=== PATIENT | female | born 1945 | race African-American/Black ===

== ENCOUNTER 2022-05-13 23:01 | Inpatient (IN) | payer OTHER ==
[~2022-05-13] VITALS: Ht 172.7 cm; Wt 80.0 kg
[2022-05-14 02:25] LABS: Basophils # (auto) 0.1 10 ^3/uL (0-0.2); Basophils % (auto) 0.9 % (0.0-2.0); Eosinophils # (auto) 0.2 10 ^3/uL (0-0.8); Eosinophils % (auto) 2.5 % (0.0-7.0); Hematocrit 43.9 % (36.0-46.0); Hemoglobin 14.7 g/dL (12.2-16.2); Lymphocytes # (auto) 2.2 10 ^3/uL (0.4-5.4); Lymphocytes % (auto) 35.2 % (10.0-50.0); Mean Corpuscular Hemoglobin 31.2 pg (28.0-32.0); Mean Corpuscular Hgb Conc. 33.4 g/dL (32.0-36.0); Mean Corpuscular Volume 93.4 fL (80.0-100.0); Monocytes # (auto) 0.5 10 ^3/uL (0-1.3); Monocytes % (auto) 7.9 % (0.0-12.0); Neutrophils # (auto) 3.3 10 ^3/uL (1.6-8.6); Neutrophils % (auto) 53.5 % (37.0-80.0); Nucleated Red Blood Cells % 0.1 %; Red Cell Distribution Width 13.8 % (11.8-14.3); White Blood Cell 6.2 10^3/uL (4.4-10.8)
[2022-05-14 02:41] LABS: Albumin 3.8 g/dL (3.4-5.0); Calcium 9.1 mg/dL (8.5-10.1)
[2022-05-14 02:45] LABS: BUN/Creatinine Ratio 11.8; Bilirubin, Total 0.5 mg/dL (0.2-1.0); Total Protein 7.5 g/dL (6.4-8.2)
[2022-05-14 02:54] LABS: Potassium 2.9 mmol/L (3.5-5.1)
[2022-05-14] MEDS ORDERED: POTASSIUM CHL 20 Meq TABLET PO ONE (03:00)
[2022-05-14 03:19] LABS: INR 0.98 (0.9-1.15)
[2022-05-14] MEDS ORDERED: CLOPIDOGREL BISULFATE 75 MG TAB PO ONE (04:30)
[2022-05-14] MEDS ORDERED: ONDANSETRON HCL 4 MG/2 ML VIAL IV PRN (05:00)
[2022-05-14] MEDS ORDERED: DOCUSATE SOD 100 MG CAP PO PRN (05:00)
[2022-05-14] MEDS ORDERED: NITROGLYCERIN 0.4 MG SL TAB SL PRN (05:00)
[2022-05-14] MEDS ORDERED: MORPHINE SULFATE INJ 2 MG/ml SYRG IV PRN (05:00)
[2022-05-14] MEDS ORDERED: ACETAMINOPHEN 325 MG TAB PO PRN (05:00)
[2022-05-14] MEDS: SODIUM CHLOR 0.9% PF (SALINE LOCK) 10ML VIAL/SYR IV SCH ×3 (06:00→22:24)
[2022-05-14 07:32] LABS: Basophils # (auto) 0 10 ^3/uL (0-0.2); Basophils % (auto) 0.4 % (0.0-2.0); Eosinophils # (auto) 0.2 10 ^3/uL (0-0.8); Eosinophils % (auto) 2.5 % (0.0-7.0); Hemoglobin 13.5 g/dL (12.2-16.2); Lymphocytes # (auto) 2.4 10 ^3/uL (0.4-5.4); Lymphocytes % (auto) 37.2 % (10.0-50.0); Mean Corpuscular Hemoglobin 31.3 pg (28.0-32.0); Mean Corpuscular Hgb Conc. 33.8 g/dL (32.0-36.0); Mean Corpuscular Volume 92.6 fL (80.0-100.0); Monocytes # (auto) 0.6 10 ^3/uL (0-1.3); Monocytes % (auto) 8.7 % (0.0-12.0); Neutrophils # (auto) 3.4 10 ^3/uL (1.6-8.6); Neutrophils % (auto) 51.2 % (37.0-80.0); Nucleated Red Blood Cells % 0.3 %; Red Blood Cells 4.32 10^6/uL (4.0-5.20); Red Cell Distribution Width 13.7 % (11.8-14.3); White Blood Cell 6.6 10^3/uL (4.4-10.8)
[2022-05-14 07:40] LABS: Albumin 3.1 g/dL (3.4-5.0); BUN/Creatinine Ratio 11.9; Calcium 8.8 mg/dL (8.5-10.1)
[2022-05-14 07:42] LABS: Bilirubin, Total 0.3 mg/dL (0.2-1.0)
[2022-05-14 07:44] LABS: Urine Bacteria NONE SEEN /hpf (None Seen); Urine Blood Negative /uL (Negative); Urine Hyaline Cast FEW /lpf (0 - 2); Urine Specific Gravity 1.013 (1.001-1.035); Urine WBC 8 /hpf (0 - 5)
[2022-05-14 07:57] LABS: Potassium 2.7 mmol/L (3.5-5.1)
[2022-05-14] MEDS ORDERED: CLOPIDOGREL BISULFATE 75 MG TAB PO SCH (10:00)
[2022-05-14] MEDS ORDERED: ASPirin 81 mg TAB PO SCH (10:00)
[2022-05-14] MEDS: POTASSIUM CHL 20MEQ/100ML 100 ML IV SCH ×2 (10:11→13:20)
[2022-05-14] MEDS ORDERED: LORazepam 2MG/ML-1ML VIAL IV PRN (20:15)
[2022-05-14 20:35] LABS: BUN/Creatinine Ratio 13.9; Calcium 8.9 mg/dL (8.5-10.1); Potassium 3.5 mmol/L (3.5-5.1)
[2022-05-14 20:37] LABS: Bilirubin, Total 0.3 mg/dL (0.2-1.0); Total Protein 6.3 g/dL (6.4-8.2)
[2022-05-14 21:48] LABS: Cholesterol 140 mg/dL (< 200); HDL Cholesterol 64 mg/dL (40-59); LDL Cholesterol 75 mg/dL (< 100); Triglycerides 52 mg/dL (< 150)
[2022-05-14] MEDS ORDERED: APIXABAN 2.5 MG TAB PO SCH (22:00)
[2022-05-14] MEDS: ATORVASTATIN 20 MG TAB PO SCH (22:24)
[2022-05-15] MEDS: SODIUM CHLOR 0.9% PF (SALINE LOCK) 10ML VIAL/SYR IV SCH ×3 (05:44→20:34)
[2022-05-15 06:01] LABS: Albumin 3.1 g/dL (3.4-5.0); Basophils # (auto) 0 10 ^3/uL (0-0.2); Basophils % (auto) 0.6 % (0.0-2.0); Calcium 8.6 mg/dL (8.5-10.1); Eosinophils # (auto) 0.2 10 ^3/uL (0-0.8); Hematocrit 37.4 % (36.0-46.0); Hemoglobin 12.8 g/dL (12.2-16.2); Lymphocytes # (auto) 2.2 10 ^3/uL (0.4-5.4); Lymphocytes % (auto) 43.4 % (10.0-50.0); Mean Corpuscular Hemoglobin 31.7 pg (28.0-32.0); Mean Corpuscular Hgb Conc. 34.3 g/dL (32.0-36.0); Mean Corpuscular Volume 92.5 fL (80.0-100.0); Monocytes # (auto) 0.5 10 ^3/uL (0-1.3); Monocytes % (auto) 10.7 % (0.0-12.0); Neutrophils # (auto) 2.1 10 ^3/uL (1.6-8.6); Neutrophils % (auto) 41.3 % (37.0-80.0); Nucleated Red Blood Cells % 0.1 %; Potassium 3.2 mmol/L (3.5-5.1); Red Blood Cells 4.05 10^6/uL (4.0-5.20); Red Cell Distribution Width 13.8 % (11.8-14.3)
[2022-05-15 06:05] LABS: BUN/Creatinine Ratio 13.5; Bilirubin, Total 0.5 mg/dL (0.2-1.0); Total Protein 5.9 g/dL (6.4-8.2)
[2022-05-15] MEDS: HYDROcodone-ACET 5/325MG TAB PO PRN ×3 (09:00→11:37)
[2022-05-15] MEDS ORDERED: CARVEDILOL 12.5 MG TAB PO ONE (14:45)
[2022-05-15] MEDS ORDERED: POTASSIUM CHLORIDE 60 MEQ, LIDOCAINE 1% (LOCAL ANESTH.) 6 ML in SODIUM CHL 0.9% 500 ML IV ONE (14:45)
[2022-05-15] MEDS ORDERED: cefTRIAXone 1GM/50ML D5W 50 ML IV ONE (14:45)
[2022-05-15] MEDS ORDERED: AMIODARONE HCL 200 MG TAB PO ONE (14:45)
[2022-05-15] MEDS: SODIUM CHLORIDE 0.9% 1,000 ML IV SCH (15:58)
[2022-05-15] MEDS: APIXABAN 2.5 MG TAB PO SCH (19:00)
[2022-05-15] MEDS: CARVEDILOL 12.5 MG TAB PO SCH (20:33)
[2022-05-15] MEDS: ATORVASTATIN 20 MG TAB PO SCH (20:34)
[2022-05-15] MEDS: AMIODARONE HCL 200 MG TAB PO SCH (20:34)
[2022-05-15 22:00] VITALS: BP 121/76
[2022-05-15 23:40] VITALS: BP_SYST 141; BP_SYST 142; BP_DIAS 85
[2022-05-16] VITALS (7 sets, daily range): BP systolic 130–152; BP diastolic 75–89
[2022-05-16] MEDS: SODIUM CHLORIDE 0.9% 1,000 ML IV SCH ×3 (04:17→23:07)
[2022-05-16] MEDS: SODIUM CHLOR 0.9% PF (SALINE LOCK) 10ML VIAL/SYR IV SCH ×3 (06:00→21:54)
[2022-05-16] MEDS: APIXABAN 2.5 MG TAB PO SCH ×2 (06:34→19:26)
[2022-05-16] MEDS: AMIODARONE HCL 200 MG TAB PO SCH ×2 (11:24→21:51)
[2022-05-16] MEDS: cefTRIAXone 1GM/50ML D5W 50 ML IV SCH (11:24)
[2022-05-16] MEDS: CARVEDILOL 12.5 MG TAB PO SCH ×2 (11:25→21:53)
[2022-05-16] MEDS ORDERED: CAR125T PO (11:38)
[2022-05-16] MEDS ORDERED: ATOR20TA50 PO (11:38)
[2022-05-16] MEDS ORDERED: APIX2.5T PO (11:38)
[2022-05-16] MEDS ORDERED: NITR0.4S29 SL (11:38)
[2022-05-16] MEDS: ATORVASTATIN 20 MG TAB PO SCH (21:51)
[2022-05-16] MEDS ORDERED: TEMAZEPAM 15 MG CAP PO ONE (22:15)
[2022-05-17 05:00] VITALS: BP 141/61
[2022-05-17] MEDS: APIXABAN 2.5 MG TAB PO SCH (06:12)
[2022-05-17] MEDS: SODIUM CHLOR 0.9% PF (SALINE LOCK) 10ML VIAL/SYR IV SCH (06:14)
[2022-05-17 09:00] VITALS: BP 153/70
[2022-05-17] MEDS: cefTRIAXone 1GM/50ML D5W 50 ML IV SCH (09:00)
[2022-05-17] MEDS: CARVEDILOL 12.5 MG TAB PO SCH (09:48)
[2022-05-17] MEDS: AMIODARONE HCL 200 MG TAB PO SCH (09:48)
== END 2022-05-17 11:15 | disposition home or self-care (01) | DRG 69 ==
LOC: ER 23:01 → TELE 05-14 04:53 → TELE-WESTW 05-15 23:00
PROVIDERS: ADMIT Nurse Practitioner Family; ATTEND Internal Medicine
DX: G45.9 Transient cerebral ischemic attack, unspecified (principal); I13.0 Hypertensive heart and chronic kidney disease with heart failure and stage 1 through stage 4 chronic kidney disease, or unspecified chronic kidney disease; N39.0 Urinary tract infection, site not specified; N17.9 Acute kidney failure, unspecified; I69.351 Hemiplegia and hemiparesis following cerebral infarction affecting right dominant side; I50.9 Heart failure, unspecified; E87.6 Hypokalemia; K21.9 Gastro-esophageal reflux disease without esophagitis; I48.0 Paroxysmal atrial fibrillation; N18.9 Chronic kidney disease, unspecified; Z20.822 Contact with and (suspected) exposure to COVID-19; E78.5 Hyperlipidemia, unspecified; F31.9 Bipolar disorder, unspecified; Z79.01 Long term (current) use of anticoagulants; E66.9 Obesity, unspecified; Z79.899 Other long term (current) drug therapy; Z68.26 Body mass index [BMI] 26.0-26.9, adult; Z80.3 Family history of malignant neoplasm of breast; Z90.710 Acquired absence of both cervix and uterus
CPT/HCPCS: 36415; 70450; 70551; 71045; 80053; 80061; 81001; 82140; 83735; 83880; 84484; 85025; 85610; 87426; 93005; 93306; 93886; 96360; G0378; J0696; J2001; J3480